=== PATIENT | female | born 1935 | race African-American/Black ===

== ENCOUNTER 2018-09-10 17:55 | Emergency (ER) | payer OTHER ==
[~2018-09-10] VITALS: Ht 167.6 cm; Wt 63.5 kg
[2018-09-10] MEDS ORDERED: LOSARTAN POTAS100 MG PO (17:59)
[2018-09-10] MEDS ORDERED: HYDRALAZINE 10M10 MG PO (17:59)
[2018-09-10] MEDS ORDERED: ASA81BEC PO (17:59)
[2018-09-10] MEDS ORDERED: RANITIDINE 150150 M1 PO (17:59)
[2018-09-10] MEDS ORDERED: TIMOLOL-BRIMONI-5 ML OPHTHALMIC (18:00)
[2018-09-10] MEDS ORDERED: ZOLOFT25 MG PO (18:00)
[2018-09-10] MEDS ORDERED: TYLENOL325 MG PO (18:01)
[2018-09-10] MEDS ORDERED: METOPROLOL SUC100 MG PO (18:03)
[2018-09-10] MEDS ORDERED: NORVASC5 MG PO (18:03)
[2018-09-10 19:01] LABS: ANION GAP 12 mmol/L (7-16); BUN 12 mg/dL (7-18); CALCIUM 9.1 mg/dL (8.5-10.1); CHLORIDE 100 mmol/L (98-107); CO2 22 mmol/L (21-32); GLUCOSE 104 mg/dL (74-106); SODIUM 134 mmol/L (136-145)
[2018-09-10 19:03] LABS: BASOPHILS 0.4 % (0.0-2.0); EOSINOPHILS 1.3 % (0.0-3.0); HEMATOCRIT 44.5 % (37.0-47.0); HEMOGLOBIN 14.9 gm/dL (12.0-15.0); LYMPHOCYTES 22.5 % (24.0-44.0); MCH 27.9 pg (26.0-34.0); MCHC 33.6 g/dL (28.0-37.0); MCV 83.1 fL (80.0-100.0); MONOCYTES 11.8 % (1.0-8.0); PLATELET COUNT 266 thou/uL (150-400); RBC 5.35 mil/uL (4.20-5.00); RDW 14.5 % (10.5-14.5); WBC 6.3 thou/uL (4.0-11.0)
[2018-09-10 19:11] LABS: POTASSIUM 4.2 mmol/L (3.5-5.1); SGOT 33 U/L (15-37); SGPT 18 U/L (30-65); TOTAL BILIRUBIN 0.8 mg/dL (<0.1-1.0); TOTAL PROTEIN 8.1 g/dL (6.4-8.2); TROPONIN-I <0.06 ng/mL (<0.06)
[2018-09-10 19:25] LABS: URINE BILIRUBIN NEGATIVE (Negative); URINE BLOOD NEGATIVE (Negative); URINE CLARITY CLEAR; URINE COLOR YELLOW; URINE GLUCOSE-RANDOM* NEGATIVE (Negative); URINE KETONES TRACE (Negative); URINE LEUKOCYTES-REFLEX NEGATIVE (Negative); URINE NITRITE-REFLEX NEGATIVE (Negative); URINE PROTEIN (DIPSTICK) TRACE (Negative); URINE SPECIFIC GRAVITY 1.015 (1.005-1.035)
[2018-09-10 22:20] VITALS: BP 105/57
--- NOTE | 2018-09-12 13:36 | EKG ---
[address] [place] [address] ELECTROCARDIOGRAM REPORT Name: MAGALY LAM [facility]: [facility] [id number] ������������������ Admission: 09/10/18 ������������������ Attend Phys: Discharge: 09/10/18 ������������������ Date of : 33 Report #: [id number] ����������������������������������������������������������������� [id number] THIS REPORT FOR: //name// [facility] ED Test Date: 2018-09-10 Test Time: 18:22:39 Pat Name: MAGALY LAM Department: Room: Gender: F Supervisor Taping: [place] : 1935 Requested By: Beto Holden Order Number: [id number] MD: Leo Nugent Measurements Intervals [place] Rate: 87 P: -15 IA: 143 QRS: -53 QRSD: 96 T: 71 QT: 374 QTc: 450 Interpretive Statements Sinus rhythm Ventricular premature complex Left anterior fascicular block Abnormal R-wave progression, early transition Left ventricular hypertrophy No previous ECG available for comparison Electronically Signed On 09-12-2018 13:36:30 CDT by Leo Nugent [email or web address] ��������������������������������������������� <ELECTRONICALLY SIGNED> ���������������������������������������� By: Leo Nugent MD, [facility] ��������������������������������������������� 09/12/18 1336 21 21 Leo Nugent MD, [facility] /EPI
== END 2018-09-10 22:21 | disposition home or self-care (01) ==
LOC: ER 17:55
PROVIDERS: Physician Assistant
DX: R53.1 Weakness (principal); W18.39XA Other fall on same level, initial encounter; Y93.89 Activity, other specified; Y92.89 Other specified places as the place of occurrence of the external cause; Y99.8 Other external cause status; F03.90 Unspecified dementia, unspecified severity, without behavioral disturbance, psychotic disturbance, mood disturbance, and anxiety; I10 Essential (primary) hypertension; E78.5 Hyperlipidemia, unspecified; K21.9 Gastro-esophageal reflux disease without esophagitis